=== PATIENT | male | born 1990 | race Caucasian/White ===

== ENCOUNTER 2018-05-10 18:11 | Emergency (ER) | payer OTHER ==
[~2018-05-10] VITALS: Ht 188 cm; Wt 147.4 kg
[2018-05-10] MEDS ORDERED: LISINOPRIL10 MG PO (18:22)
[2018-05-10 18:57] LABS: ABSOLUTE EOSINOPHILS 0.2 thou/uL (0.0-0.7); ABSOLUTE LYMPHOCYTES 1.4 thou/uL (0.8-5.3); ABSOLUTE MONOCYTES 0.7 thou/uL (0.0-1.2); ABSOLUTE NEUTROPHILS 4.7 thou/uL (1.6-8.1); BASOPHILS 0.6 %; EOSINOPHILS 3.2 %; HEMATOCRIT 44.7 % (42.0-52.0); HEMOGLOBIN 16.4 gm/dL (14.0-18.0); LYMPHOCYTES 20.2 %; MCH 32.7 pg (26.0-34.0); MCHC 36.6 g/dL (28.0-37.0); MCV 89.5 fL (80.0-100.0); MONOCYTES 9.4 %; MPV 7.2 fl. (7.2-11.1); NUCLEATED RBCS 0 /100WBC; PLATELET COUNT* 238 thou/uL (150-400); POLYS 66.6 %; RDW-CV 12.9 % (10.5-14.5); WBC 7.1 thou/uL (4.0-11.0)
[2018-05-10 19:07] LABS: ANION GAP 10 mmol/L (7-16); BUN 17 mg/dL (7-18); CALCIUM 9.2 mg/dL (8.5-10.1); CHLORIDE 101 mmol/L (98-107); CO2 28 mmol/L (21-32); CREATININE 1.2 mg/dL (0.6-1.3); GLUCOSE 128 mg/dL (70-99); POTASSIUM 4.1 mmol/L (3.5-5.1); SODIUM 139 mmol/L (136-145)
[2018-05-10 19:14] LABS: ALKALINE PHOSPHATASE 71 U/L (46-116); LIPASE 90 U/L (73-393); SGOT 18 U/L (15-37); SGPT 39 U/L (30-65); TOTAL BILIRUBIN 0.4 mg/dL (<0.1-1.0); TOTAL PROTEIN 8.1 g/dL (6.4-8.2); TROPONIN-I LEVEL <0.06 ng/mL (<0.06)
[2018-05-10 20:11] LABS: INFLUENZA A ANTIGEN None Detected (None Detect); INFLUENZA B ANTIGEN None Detected (None Detect)
[2018-05-10 20:28] LABS: URINE BILIRUBIN NEGATIVE (Negative); URINE BLOOD NEGATIVE (Negative); URINE CLARITY CLEAR; URINE COLOR YELLOW; URINE GLUCOSE-RANDOM NEGATIVE (Negative); URINE KETONES NEGATIVE (Negative); URINE LEUKOCYTES-REFLEX NEGATIVE (Negative); URINE NITRITE-REFLEX NEGATIVE (Negative); URINE PROTEIN NEGATIVE (Negative); URINE SPECIFIC GRAVITY >= 1.030 (1.005-1.030); URINE UROBILINOGEN 0.2 E.U./dl (0.2-1.0)
[2018-05-10] MEDS ORDERED: ZPAK PO (20:40)
[2018-05-10] MEDS ORDERED: MEDROLDOSEPACK PO (20:40)
[2018-05-10] MEDS ORDERED: VENTOLIN HFA 1818 GM INH (20:40)
[2018-05-10] MEDS ORDERED: TESSALON PERLE100 MG PO (20:42)
[2018-05-10 21:26] LABS: ANISOCYTOSIS 1+; PLATELET ESTIMATE ADEQUATE; POLYCHROMASIA 1+
[2018-05-10 22:05] VITALS: BP 162/94
--- NOTE | 2018-05-11 13:47 | EKG ---
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[facility] : 1990 Requested By: Darlin Ann Order Number: [id number] MD: Pio Bhatti Measurements Intervals [place] Rate: 85 P: 58 [place]: 160 QRS: 64 QRSD: 89 T: 13 QT: 384 QTc: 457 Interpretive Statements Sinus rhythm septal q waves ST elev, probable normal early repol pattern Baseline wander in lead(s) V2 No previous ECG available for comparison Electronically Signed On 05-11-2018 13:47:15 SYSTEMS ANALYSIS MANAGER by Pio Bhatti [email or web address] <ELECTRONICALLY SIGNED> By: Pio Bhatti MD, [facility] 05/11/18 1347 1843 1843 Pio Bhatti MD, FAC /EPI
== END 2018-05-10 22:09 | disposition home or self-care (01) ==
LOC: M.ERS 18:11
PROVIDERS: Nurse Practitioner Family
DX: J20.9 Acute bronchitis, unspecified (principal); K52.9 Noninfective gastroenteritis and colitis, unspecified; I10 Essential (primary) hypertension